=== PATIENT | male | born 1985 | race American Indian/Alaskan Native ===

== ENCOUNTER 2022-02-24 11:47 | Emergency (ER) | payer SELFPAY ==
[2022-02-24 12:22] VITALS: BP 131/74
== END 2022-02-24 19:00 | disposition left against medical advice (07) ==
LOC: ED 11:47
DX: M54.9 Dorsalgia, unspecified (principal); R51.9 Headache, unspecified; Z53.21 Procedure and treatment not carried out due to patient leaving prior to being seen by health care provider